=== PATIENT | male | born 1950 | race Caucasian/White ===

== ENCOUNTER 2023-01-15 13:29 | Outpatient (CLI) | payer MEDICARE | END 2023-01-15 13:30 | disposition home or self-care (01) | LOC: CSHRAD 13:29 | PROVIDERS: ATTEND Psychiatry & Neurology Neurology | DX: R20.9 Unspecified disturbances of skin sensation (principal); M47.816 Spondylosis without myelopathy or radiculopathy, lumbar region | CPT/HCPCS: 72100 ==